=== PATIENT | male | born 1990 | race Caucasian/White ===

== ENCOUNTER 2018-08-21 19:01 | Emergency (ER) | payer OTHER ==
[~2018-08-21] VITALS: Ht 167.6 cm; Wt 63.5 kg
[2018-08-21 20:36] VITALS: BP 115/68
== END 2018-08-21 20:36 | disposition home or self-care (01) ==
LOC: M.ERS 19:01
DX: S63.286A Dislocation of proximal interphalangeal joint of right little finger, initial encounter (principal); W51.XXXA Accidental striking against or bumped into by another person, initial encounter; Y93.75 Activity, martial arts; Y92.89 Other specified places as the place of occurrence of the external cause; Y99.8 Other external cause status